=== PATIENT | female | born 1985 | race Caucasian/White ===

== ENCOUNTER 2016-05-06 16:34 | Inpatient (IN) | payer OTHER ==
[~2016-05-06] VITALS: Ht 160 cm; Wt 96.6 kg
[~2016-05-06 16:34] MED LIST: RIZA10TA23 PO
[2016-05-06] MEDS ORDERED: Lactated Ringer's 1,000 ML IV PRN (17:28)
[2016-05-06] MEDS ORDERED: Hemorrhage Kit, Post Partum XX ONE (17:30)
[2016-05-06] MEDS ORDERED: Carboprost 250 mCg/mL Inj IM PRN (17:30)
[2016-05-06] MEDS ORDERED: Oxytocin 10 Unit/mL Inj IM PRN (17:30)
[2016-05-06] MEDS ORDERED: Oxytocin 30 Units/500 mL LR 30 UNITS in IV Premix 1 EACH IV PRN ×2 (17:30→19:50)
[2016-05-06] MEDS ORDERED: Sodium Chloride LOK Flush 10 mL Syringe IVFLUSH PRN (17:30)
[2016-05-06] MEDS ORDERED: Methylergonovine 0.2 mg/mL Inj IM PRN (17:30)
[2016-05-06 18:43] LABS: Mean Corpuscular Hemoglobin 29.8 pg (27.0-35.0); Mean Corpuscular Volume 91.5 fL (81-100)
--- NOTE | 2016-05-06 20:16 | PCM.HPOB ---
Subjective Date of Service: May 06, 2016 Referring Provider: Admitting Physician: Hanna Kirby MD Primary Care Physician: Hanna Kirby MD Attending Physician: Hanna Kirby MD Printmaker: Dr. Davis Chief Complaint Term with SROM History of Present History of Present Illness Patient is a very pleasant 30-year-old TAB 1 with EDC of 05/20/2016 based on 16 week ultrasound. She has had regular care and had SROM for clear fluid this afternoon at 0200 hrs. She has been having occasional mild contractions every 5-10 minutes since that time, heart rate is reactive with baseline in the 130s and mom is noting good movement. GBS is negative and she is afebrile. She is otherwise been feeling well with no cough or cold. Patient does have chronic lower back pain and had been on Vicodin in the earlier part of the but has weaned herself off in the last couple of weeks. She also has history of HSV type 2, and has been on acyclovir prophylaxis since 33 weeks. She is a smoker and is Rh- and received RhoGAM in the . Blood type is AB-. Vaginal exam at this time showed vertex at - 3 station, cervix 2 cm dilated, and she is 50% effaced. There is copious clear amniotic fluid. Options reviewed with mom and Pitocin augmentation will be started. Of note labs drawn on admission showed hemoglobin of 7.7 and platelet count of 76. Repeat labs are pending at time of this dictation but patient has no history of cytopenia and blood pressures in the have very from 103/ 67-120/86. She is not having any nausea, vomiting, headaches, or visual changes and does not have any leg swelling. Estimated weight is around 7 pounds and vaginal delivery is anticipated. Patient does not want an epidural at this juncture. Past Medical History Obstetrical History: 1. Her first was a termination in early 2006 with no complications . 2. Baby #1was born 01/21/2005, at 39 weeks gestation with 32 hours of labor. She had of an 8 lb 1oz baby boy, with epidural in labor. Mild PIH with oligo at term was noted, with induction for this."Stephen" 3. Baby #2 was born 10/18/2010 at 40 +6 weeks gestation with 3 hours of labor. She had of 7lb 9oz baby boy, no epidural, no PIH. Healthy baby and . "Orion" 4. This is her current . Gynecologic History: Her second baby did take 18 months to conceive, but this is likely due to male factors and not female factors. They were using condoms for contraception and cycles are regular with normal flow. She had a positive home test about 4-5 weeks after LMP of 08/10/2015. Medical History: Patient has had pyelonephritis in 2008 and renal colic in 2009 with a stone that passed on its own. She has had history of headaches and chronic lower back pain for which she has been on Vicodin 5/325 x90 tablets per month up until the last couple of weeks of . She was hospitalized for depression with suicide attempts at the ages of 13 and 15. Mood has been stable for some time and she has not had history of depression. Surgical History: Patient has not had any surgical procedures. Social History: Patient is single but lives with the father of her son Orion. Hx Tobacco Use: Yes Smoking Status: Current Every Day Smoker Hx Alcohol Use: No Past Family History Living Arrangement: with Family Genetic Screening/Counseling Genetic Screening/Counseling: Negative Baby father-had child w defect: No Review of Systems Constitutional: Y: Fever, Pain Eyes: Denies: Blurred Vision, Double Vision, Vision Changes ENT: Denies: Dental Problems, Ear Pain, Nasal Congestion, Nose Discharge, Ulcers/Sores in Mouth Cardiovascular: Denies: Chest Pain, Edema Respiratory: Denies: Cough Gastrointestinal: Denies: Abdominal Pain, Constipation, Diarrhea, Heartburn, Nausea, Vomiting Genitourinary: Denies: Dysuria Musculoskeletal: Denies: Redness Skin/Breasts: Denies: Bruising, Jaundice Skin: Denies: Bruising Neurological: Denies: Change in Speech Psychologic: Denies: Agitation, Anxious, Apprehensive Hematologic: Denies: Adenopathy Medications Home medications 1. Vicodin 5/325 one tab 3 times a day when necessary 2. Acyclovir 400 mg by mouth twice daily Allergy Coded Allergies: iodine (Verified Allergy, Unknown, 09/05/14) latex (Verified Allergy, Unknown, 09/05/14) Exam Vital Signs 122/67. Temp 36.7, HR 82, RR 16 Exam Vertex presentation, longitudinal lie Constitutional: Well-developed, Well-nourished, Normal habitus HEENT: PERRLA, Mucous Membr Moist/[place] Lungs: Clear to Auscultation, Normal Air Movement Heart: Regular Rate/Rhythm, Normal S1, Normal S2, No Murmurs/Rubs/Gallops Abdomen: Gravid, Normal bowel sounds, Soft, No tenderness, No hepatosplenomegaly Lymphatic: Normal: Neck Palpation of Nodes Extremities: Pulses Palpable x4, Warm, No Edema Neurological/Psychiatric: Alert, Oriented X3, Cooperative, No Acute Distress Neuro: Grossly Neurologically Intact Labs/Diagnostics Labs Platelets 76, Hemoglobin 7.7 ( repeat lab draw is pending). Blood type is AB- and RhoGAM was given in the . Pap smear was normal, rubella is immune , RPR nonreactive, urine culture showed MUGF, hepatitis B surface antigen was negative and HIV was negative. Hepatitis C was less than 0.1, HSV type I was negative but HSV type II is positive. A1c was 5.1% in the first trimester. GC and chlamydia were both negative. Her 1 hour GTT was 114. GBS is negative. Maternal Blood Type: AB Hx Rho(D) Immune Globulin: Yes Antibody Screen: negative Group B Strep Results: Negative Previous with GBS: No Rubella: Immune Lab History: Positive for: Hx Herpes, Negative for: Hx Chicken Pox, Hx Gonorrhea, Hx HIV, Hx Syphilis OB Intrapartum Assessment/Plan Assessment Patient is a pleasant 30-year-old A1 at 38 weeks with SROM for clear fluid. EDC is 05/20/2016. Mother has had regular care and weight gain in the has only been 10 pounds. She has smoked throughout the . She is gabriel irregularly Pitocin augmentation will be started. Her hemoglobin was 7.7 with platelet count of 76 and repeat lab draw is pending at time of this dictation. She has no history of thrombocytopenia in any of her pregnancies and only mild anemia in the past. EFW is around 7 lbs , and is anticipated. Problems: (1) with 38 completed weeks gestation Status: Acute ICD Code: Z3A.38 (2) SROM (spontaneous rupture of membranes) Status: Acute ICD Code: [id number] Pain Evaluation: Adequate Pain Control Hanna Kirby MD May 06, 2016 20:16
[2016-05-06 20:25] LABS: BASOPHILS % (AUTO) 0.2 % (0-3); EOSINOPHILS % (AUTO) 0.2 % (0-5); MONOCYTES % (AUTO) 5.6 % (4-12); Mean Corpuscular Hemoglobin 29.5 pg (27.0-35.0); Mean Corpuscular Volume 90.5 fL (81-100); NEUTROPHILS % (AUTO) 79.8 % (40-74); Platelet Count 218 bil/L (150-400)
[2016-05-06] MEDS ORDERED: iron PO (20:34)
[2016-05-06] MEDS ORDERED: prenatal vitamin PO (20:34)
[2016-05-06 20:51] LABS: INR 0.91 ratio
[2016-05-07] MEDS: fentaNYL-PF 50 mCg/mL 2 mL Inj IVPUSH PRN ×2 (04:30→07:48)
[2016-05-07] MEDS: Lactated Ringer's 1,000 ML IV SCH ×2 (07:54→10:32)
--- NOTE | 2016-05-07 08:14 | PCM.PNOBIP ---
Subjective Date of Service May 07, 2016 Delivery plan: Spontaneous Vaginal Delivery Visit History Patient was on pitocin thruout the evening yesterday, and this was stopped at 02 :30 hrs as monitoring was difficult, and patient was allowed to sleep. She was rating the contractions at 8 to 9/10 this morning, and IUPC was placed, and they were moderate at best. Fentanyl was also given, and scalp electrode was placed. Fluid remains clear and copius. FHR baseline is in 130 to 140's with good BTBV and accels. Patient tired, but coping well thus far given the cervical consistency we started induction with. Cervix is softening and is 75%, 3cm , vertex at -3. still anticipated, and ampicillin is being started. Maternal Date/Time of ROM: 05/06/2016 14:00 Pain Management: IV Push Gastrointestinal: No N/V Group B Strep Results: Negative Rubella: Immune Blood Type: AB Labs Laboratory Tests 05/06/16 20:15: White Blood Count 12.1, Red Blood Count 3.70, Hemoglobin 10.9, Hematocrit 33.5, Mean Corpuscular Volume 90.5, Mean Corpuscular Hemoglobin 29.5, Mean Corpuscular Hemoglobin Concent 32.5, Red Cell Distribution Width 13.4, Platelet Count 218, Neutrophils (%) (Auto) 79.8, Lymphocytes (%) (Auto) 13.4, Monocytes ( %) (Auto) 5.6, Eosinophils (%) (Auto) 0.2, Basophils (%) (Auto) 0.2 Exam Vital Signs Vital Signs Contraction frequency in minutes: MVUs: Vital Signs: VS reviewed, stable Heart Tracings Heart Tones Baseline 135 bpm Heart Rate Variability: Moderate Heart Rate Accelleration: Present Heart Rate Deceleration: Absent Heart Rate Category: I Tocometry/IUPC Contraction frequency in minutes: MVUs: Sterile Vaginal Exam Cervical Dilation: 3 cms Cervical Effacement: 70 % Station: -3 Exam Abdomen: Abdomen soft Lungs: Clear to Auscultation, Normal Air Movement Heart: Regular Rate/Rhythm, Normal S1, Normal S2, No Murmurs/Rubs/Gallops General: Alert, Oriented X3, Cooperative, No Acute Distress OB Intrapartum Assessment/Plan Assessment Patient is 30 year old at 38 +1 weeks with SROM, GBS negative but SROM x 18 hours and Ampicillin will be started. Cervix is still softening and vertex is high. However, she will likely descend rapidly once she is complete, and short push is anticipated. Repeat labs from last evening reviewed, and Hgb is 10.9, platelets 218 and PIH labs are normal. First lab draw was likely diluted. Patient has no history of thrombocytopenia but has had some mild anemia of . Problems: (1) with 38 completed weeks gestation Status: Acute ICD Code: Z3A.38 (2) SROM (spontaneous rupture of membranes) Status: Acute ICD Code: [id number] Intrapartum plan: Continue expected management, Start pitocin, IUPC placed, scalp electrode placed Intrapartum Pain Management: May have epidural when desired, IV Fentanyl Pain Evaluation: Adequate Pain Control Intrapartum Antibiotics: Ampicillin Hanna Kirby MD May 07, 2016 08:14
[2016-05-07] MEDS ORDERED: Ampicillin 2,000 mg/100 mL NS Minibag Plus IV ONE ×2 (08:20)
[2016-05-07] MEDS ORDERED: Lactated Ringer's 500 ML IV ONE (09:13)
[2016-05-07] MEDS ORDERED: Lactated Ringer's 1,000 ML IV SCH ×2 (09:13→11:59)
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
[2016-05-07] MEDS ORDERED: fentaNYL 2 mCg/mL-Bupiv 0.125% 100 ML EPIDURAL SCH (09:15)
[2016-05-07] MEDS ORDERED: Atropine 1 mg/10 mL (Code) Syringe IVPUSH PRN (09:15)
[2016-05-07] MEDS ORDERED: EPHEDrine Sulfate 50 mg/mL Inj IVPUSH PRN (09:15)
[2016-05-07] MEDS ORDERED: Ondansetron 2 mg/mL 2 mL Inj IVPUSH PRN (09:15)
[2016-05-07] MEDS ORDERED: LANOlin HPA 7 Gm Ointment TOPICAL PRN (12:00)
[2016-05-07] MEDS ORDERED: Methylergonovine 0.2 mg/mL Inj IM PRN (12:00)
[2016-05-07] MEDS ORDERED: Carboprost 250 mCg/mL Inj IM PRN (12:00)
[2016-05-07] MEDS ORDERED: Hemorrhage Kit, Post Partum XX ONE (12:00)
[2016-05-07] MEDS ORDERED: Oxytocin 10 Unit/mL Inj IM PRN (12:00)
[2016-05-07] MEDS ORDERED: Oxytocin 30 Units/500 mL LR 30 UNITS in IV Premix 1 EACH IV PRN (12:00)
[2016-05-07] MEDS ORDERED: Witch Hazel-Glycerin Pads TOPICAL PRN (12:00)
[2016-05-07] MEDS ORDERED: Benzocaine (Dermoplast) 20% 60 Gm Spray TOPICAL PRN (12:00)
--- NOTE | 2016-05-07 12:13 | PCM.OBVAG ---
Vaginal Delivery Date of Service May 07, 2016 Pre Operative Diagnosis Pre Operative Diagnosis 1. at 38 weeks with spontaneous rupture of membranes 2. Pitocin augmentation of labor 3. Epidural analgesia 4. Spontaneous vaginal delivery of a live born female infant with a tight nuchal cord Post Operative Diagnosis Post Operative Diagnosis 1. at 38 weeks with spontaneous rupture of membranes 2. Pitocin augmentation of labor 3. Epidural analgesia 4. Spontaneous vaginal delivery of a live born female with a tight nuchal cord Procedure Obstetical Procedure: Normal Spontaneous Vaginal Delivery Inflated Pad Buffer/Manager Group Provider and Manager Group: Dr. Hanna Kirby Indication for Procedure Induction: SROM, Progressed normally through labor Findings Obstetrical Findings: [place] (Female), Cord (3 Vessel), Weight (2666), Presentation (RM), 1 minute (6), 5 minutes (8), 10 minutes (9 ), Placenta (Intact/Normal), Perineal Laceration (1st degree) Analgesia/Medications Obstetrical Anesthesia: Epidural, IV pain medication Procedure Details Procedure Details Patient is a very pleasant 30-year-old with an EDC of 05/21/2016 and regular care. She is GBS negative and is AB- as well and received RhoGAM during the . She did continue to smoke throughout the and weight gain was only 13 pounds. Mother was at home yesterday and had spontaneous rupture of membranes for clear fluid at 1400 hrs. She came to the center shortly thereafter and was gabriel sporadically. Cervix was 2 cm dilated, vertex presentation, and 50% effaced and Pitocin augmentation was started. Fluid remained clear and heart rate was reassuring with baseline in the 130s to 140s and good [id number] variability. Pitocin was stopped for several hours overnight and mother allowed to sleep. This morning when she was reexamined, she was 3 cm dilated, vertex at -3 station, and cervix was much softer. An IUPC was placed and a scalp electrode as well to help facilitate monitoring. Pitocin augmentation had already been restarted. heart rate was reassuring and fluid remained clear. Over the next several hours mother made excellent progress through labor and made very rapid progress from 5-10 cm over about half an hour. She became completely dilated at 1048 hrs., and went onto spontaneous vaginal delivery of a live born female infant with a tight nuchal cord at 1055 hrs. The cord was unable to be reduced over the baby's head and I clamped and cut this prior to delivery of the shoulders. Baby was limp and not breathing at and was handed off to nursing staff. She required 2 minutes of IPPV assist and 2 minutes of blow-by oxygen. Pediatrics was also called to come in and assess the baby. Clinically baby was 2 1/2 to 3 weeks early and her Anderson score was 35 placing her at 37-38 weeks gestational age. An initial blood sugar was 54. Her Apgars were 6 at 1 minute and 8 at 5 minutes, and 9 at 10 minutes. weight was 5 lbs. 14 oz. and she is small for gestational age. Placenta delivered intact with a three-vessel cord and estimated blood loss at time of delivery was around 200 mils. Mother has already been breast-feeding and colostrum is easily expressed. Mother did sustain a small first-degree perineal tear which was closed with 4 sutures of 4-0 Vicryl to achieve good cosmesis and hemostasis. Routine care is anticipated for mom and baby, at this juncture. Mother's first stage of labor was 3 hours and 18 minutes, second stage 7 minutes, and third stage was 5 minutes. We also did send off a specimen for cord gases. Specimen Placenta was for routine disposal and appeared intact. Blood Loss & Administration Estimated Blood Loss: 200 Blood Admin during procedure: No Post Procedure Plan Post delivery Condition: Mom nick Hanna Kirby MD May 07, 2016 12:12
[2016-05-07] MEDS: HYDROcodone-APAP 5-325 mg Tablet PO PRN ×4 (12:14→22:17)
[2016-05-07] MEDS ORDERED: AMPICILLIN IV SCH ×2 (12:30)
[2016-05-07] MEDS ORDERED: [UNRECOGNIZED DRUG - OTHER] IV SCH ×2 (12:30)
--- NOTE | 2016-05-07 19:40 | PCM.ANEP2 ---
Post Anesthesia Evaluation ASA/CMS Post Anesthesia VS in Patient's Normal Range?: Yes Resp Stable; Airway Patent?: Yes CV Function & Hydration Stable: Yes Mental Status Recovered?: Yes Pain control Satisfactory?: Yes N/V Control Satisfactory?: Yes Khai Ferguson MD May 07, 2016 19:40
[2016-05-07] MEDS: Ascorbic Acid 500 mg Tablet PO SCH (19:54)
[2016-05-08] MEDS ORDERED: TdaP Vaccine 0.5 mL Inj IM ONE (04:35)
[2016-05-08] MEDS ORDERED: Oxytocin 30 Units/500 mL LR 30 UNITS in IV Premix 1 EACH IV PRN (05:39)
[2016-05-08] MEDS ORDERED: Lactated Ringer's 1,000 ML IV SCH (05:40)
[2016-05-08] MEDS: HYDROcodone-APAP 5-325 mg Tablet PO PRN ×3 (05:48→12:55)
[2016-05-08 07:19] LABS: Mean Corpuscular Hemoglobin 29.3 pg (27.0-35.0); Mean Corpuscular Volume 90.9 fL (81-100)
[2016-05-08] MEDS: Ascorbic Acid 500 mg Tablet PO SCH (09:27)
--- NOTE | 2016-05-08 12:11 | PCM.DIOB ---
Obstetrical Disch Instruction Date of Service: May 08, 2016 Dates of Hospitalization Date of Hospital Admission May 06, 2016 at 16:40 Providers Admitting Physician: Hanna Kirby MD Primary Care Physician: Hanna Kirby MD Attending Physician: Hanna Kirby MD Discharge Diagnosis Discharge Diagnosis 1. at 38 weeks with spontaneous rupture of membranes 2. Pitocin augmentation of labor 3. Epidural analgesia 4. Spontaneous vaginal delivery of a live born female infant with a tight nuchal cord Post Operative diagnosis 1. at 38 weeks gestational age with spontaneous rupture of membranes 2. Pitocin augmentation of labor 3. Epidural analgesia 4. Spontaneous vaginal delivery of a live born female with a tight nuchal cord Problems: (1) with 38 completed weeks gestation Status: Resolved ICD Code: Z3A.38 (2) SROM (spontaneous rupture of membranes) Status: Resolved (3) (normal spontaneous vaginal delivery) Status: Acute ICD Code: O80 Diet Discharge Diet: No restrictions Activity Discharge Activity-General: No restrictions, Pelvic Rest for 6 weeks, Try not to overdue, Be up and about, Balance rest and activity, Activity as pain allows , Activity as energy allows Dressing and Incisional Care Hygiene: May shower, Perineal care, Sitz bath, Dermoplast spray, Witch Brittany pads, Ice Additional Instructions Discharge Instructions Please breast-feed the baby every 2-3 hours and on demand. As she grows and gets bigger, some of her feeds may out. She should be having at least 4-6 wet diapers in 24 hours and should have several soft yellow stools. Please observe pelvic rest and avoid intercourse, use of tampons, or douching until 6 weeks . We will discuss further control options in the office. Please call the office with any questions or concerns in the interim. Follow Up Plan Follow-up Provider (F9): Hanna Kirby MD Follow-up appointment: Weeks (6) Call your provider for: Fever or Chills, Shortness of breath, Heavy vaginal bleeding, Epigastric pain, Excessive constipation, Vaginal discomfort, Red painful breasts Hanna Kirby MD May 08, 2016 12:11
[2016-05-08] MEDS ORDERED: ZLP5T PO (12:14)
[2016-05-08] MEDS ORDERED: IBUP800T28 PO (12:14)
[2016-05-08] MEDS ORDERED: HYDR-4003 PO (12:14)
[2016-05-08] MEDS ORDERED: FERR-74 PO (12:14)
[2016-05-08] MEDS ORDERED: DOCU-41 PO (12:14)
--- NOTE | 2016-05-08 12:20 | PCM.DC.OB ---
Obstetrical Discharge Summary Date of Service May 08, 2016 Date of hospital admission May 06, 2016 at 16:40 Date of Discharge: May 08, 2016 Providers Admitting Physician: Hanna Kirby MD Primary Care Physician: Hanna Kirby MD Attending Physician: Hanna Kirby MD Diagnosis at Time of Discharge 1. at 38 weeks gestational age was spontaneous rupture of membranes 2. Pitocin augmentation of labor 3. Epidural analgesia 4. Spontaneous vaginal delivery of a live born female with a tight nuchal cord Problems: (1) with 38 completed weeks gestation Status: Resolved ICD Code: Z3A.38 (2) SROM (spontaneous rupture of membranes) Status: Resolved (3) (normal spontaneous vaginal delivery) Status: Acute ICD Code: O80 Brief History and Physical: Patient is a very pleasant 30-year-old TAB 1 with EDC of 05/20/2016 based on 16 week ultrasound. She has had regular care and had SROM for clear fluid this afternoon at 0200 hrs. She has been having occasional mild contractions every 5-10 minutes since that time, heart rate is reactive with baseline in the 130s and mom is noting good movement. GBS is negative and she is afebrile. She is otherwise been feeling well with no cough or cold. Patient does have chronic lower back pain and had been on Vicodin in the earlier part of the but has weaned herself off in the last couple of weeks. She also has history of HSV type 2, and has been on acyclovir prophylaxis since 33 weeks. She is a smoker and is Rh- and received RhoGAM in the . Blood type is AB-. Vaginal exam at this time showed vertex at - 3 station, cervix 2 cm dilated, and she is 50% effaced. There is copious clear amniotic fluid. Options reviewed with mom and Pitocin augmentation will be started. Of note labs drawn on admission showed hemoglobin of 7.7 and platelet count of 76. Repeat labs are pending at time of this dictation but patient has no history of cytopenia and blood pressures in the have very from 103/ 67-120/86. She is not having any nausea, vomiting, headaches, or visual changes and does not have any leg swelling. Estimated weight is around 7 pounds and vaginal delivery is anticipated. Patient does not want an epidural at this juncture. Hospital Course: Patient progressed well through active stage of labor and did receive an epidural. Her first stage of labor was 3 hours and 18 minutes, second stage was 7 minutes, and third stage was 5 minutes. She went onto spontaneous vaginal delivery of a live born female infant with a tight nuchal cord. This was clamped and cut prior to delivery of the shoulders. Baby was limp and not breathing and was handed off to nursing staff who began immediate resuscitation. Baby required 2 minutes of IPPB assist and 1-2 minutes of blow- by oxygen. Pediatrics also came and assisted with , baby's resuscitation but she was doing well at this time. Her Apgars were 6 at 1 minute and 8 at 5 minutes, and 9 at 10 minutes. Her weight was 5 lbs. 14 oz. and she was small for gestational age. Of note mother gained 13 pounds in the and smoked throughout the . Mother also has chronic lower back pain and had been on Vicodin throughout the but had weaned herself off several weeks prior to delivery. She is having lower back pain again and would like to go back on her pain medications which were prescribed for discharge. She will also be on some iron at discharge. Her placenta delivered intact with a three-vessel cord and estimated blood loss at time of delivery was around 200 mils. Mother's admitting hemoglobin on second draw was 10.9 with hematocrit of 33.5. Hemoglobin this morning was 9.3 with hematocrit of 28.8 and platelet count was 174. She is up and ambulating and bonding well with her baby. She has a generous supply of colostrum and breast-feeding is going nicely. Mom has also been pumping some. She feels ready for discharge and her vital signs are all stable. On examination, she is in no acute distress and is ambulating comfortably throughout the room. Chest was clear throughout with normal respiratory efforts heart sounds from a sinus rhythm with no murmurs. Breasts are soft nipples are quite large but colostrum is easily expressible. Fundus is firm at the umbilicus. Her perineum is not swollen and she has moderate rubra lochia. She had several stitches placed for first degree perineal tear and these are intact and clean. She has no ankle edema. ([ vitamin]) PO DAILY (Reported) Last Taken: Unknown Dose on 05/06/16 ([iron]) PO DAILY (Reported) Last Taken: Unknown Dose on 05/04/16 Docusate Sodium (Colace) 100 Mg Capsule 100 MG PO BID Prescribed by: HANNA KIRBY MD Ferrous Sulfate (Feosol) 325 Mg Tablet 325 MG PO BIDWM Prescribed by: HANNA KIRBY MD Hydrocodone-Acetaminophen 5-325 mg (Hydrocodone-Acetaminophen 5-325 mg) 1 Each Tablet 1-2 TABLET PO Q4H PRN PRN For Pain Prescribed by: HANNA KIRYB MD Ibuprofen (Ibuprofen) 800 Mg Tablet 800 MG PO Q6H PRN PRN For Pain Prescribed by: HANNA KIRBY MD Zolpidem (Ambien) 5 Mg Tablet 5 MG PO HS PRN PRN Insomnia Prescribed by: HANNA KIRBY MD Discontinued Medications Rizatriptan ODT (Maxalt REGISTERED N[employer]SE TE[employer]ER) 10 Mg Tablet 10 MG PO q2 hours PRN PRN For Headache Prescribed by: NIRMAL TREVIÑO MD Disposition Patient will be discharged home today with her baby for follow-up in the office. Discharge Diet: No restrictions Discharge Activity-General: No restrictions, Pelvic Rest for 6 weeks, Try not to overdue, Be up and about, Balance rest and activity, Activity as pain allows , Activity as energy allows Hanna Kirby MD May 08, 2016 12:20
[2016-05-08 13:39] VITALS: BP 122/57; PULSE 68; RESP 20
== END 2016-05-08 15:50 | disposition home or self-care (01) | DRG 560 ==
LOC: FBCO 16:34 → FBC 16:40
PROVIDERS: ADMIT Family Medicine; ATTEND Family Medicine
PROC: 10E0XZZ Delivery of Products of Conception, External Approach (ICD-10-PCS; principal; 2016-05-07)
PROC: 0HQ9XZZ Repair Perineum Skin, External Approach (ICD-10-PCS; 2016-05-07)
PROC: 10H07YZ Insertion of Other Device into Products of Conception, Via Natural or Artificial Opening (ICD-10-PCS; 2016-05-07)
DX: O69.1XX0 Labor and delivery complicated by cord around neck, with compression, not applicable or unspecified (principal); O98.52 Other viral diseases complicating childbirth; F11.20 Opioid dependence, uncomplicated; O99.324 Drug use complicating childbirth; Z3A.38 38 weeks gestation of pregnancy; Z37.0 Single live birth; O70.0 First degree perineal laceration during delivery; O99.334 Smoking (tobacco) complicating childbirth; F17.210 Nicotine dependence, cigarettes, uncomplicated; G89.29 Other chronic pain; B00.9 Herpesviral infection, unspecified